=== PATIENT | female | born 1970 | race Caucasian/White ===

== ENCOUNTER 2022-05-08 18:14 | Emergency (ER) | payer OTHER ==
[~2022-05-08] VITALS: Ht 154.9 cm; Wt 82.1 kg
--- NOTE | 2022-05-08 18:23 | NUR ---
BIB [facility] FROM HOME, ASTHMA ATTACK STARTED THIS MORNING, ALBUTEROL HHN GIVEN SHIPPING LEAD PERSON,BLOOD [id number], TO ER BED 7, HOOKED TO MONITOR, CHANGED TO HOSP GOWN, WARM BLANKET PROVIDED, PATIENT AAO x 4. ON NASAL CANNULA AT 4LPM, O2 SAT AT 97%. AWAITING MD BLANCA
--- NOTE | 2022-05-08 18:31 | NUR ---
DR MARTINS AT BEDSIDE
[2022-05-08] MEDS ORDERED: predniSONE 20 MG TABLET ONE (18:42)
[2022-05-08] MEDS ORDERED: ALBUTEROL FS 2.5 MG/0.5 ML VIAL.NEB NEB ONE (19:00)
[2022-05-08] MEDS ORDERED: predniSONE 50 MG TABLET PO ONE (19:00)
--- NOTE | 2022-05-08 19:02 | NUR ---
COVID SWAB DONE AND SENT TO LAB
[2022-05-08] MEDS ORDERED: ALBUTEROL FS 2.5 MG/0.5 ML VIAL.NEB ONE (19:08)
--- NOTE | 2022-05-08 19:32 | NUR ---
RECEIVED REPORT FROM JANELL LOPES FOR [facility]IL
[2022-05-08] MEDS ORDERED: ALBU18HF2 INH (19:38)
[2022-05-08] MEDS ORDERED: PRED50TA PO (19:38)
--- NOTE | 2022-05-08 19:40 | NUR ---
PT IN RESTING COMFORTABLY IN BED, STATES SHE FEELS MUCH BETTER AFTER BREATHING TREATMENT.WILL CONTINUE TO MONITOR
--- NOTE | 2022-05-08 19:53 | NUR ---
Patient discharged to home in stable condition. Written and verbal after care instructions given. Patient verbalizes understanding of instruction.
[2022-05-08 19:54] VITALS: BP 112/60
--- NOTE | 2022-05-08 21:21 | NUR ---
PT ASSISTED TO HER CAR ON A WHEELCHAIR.
== END 2022-05-08 21:21 | disposition home or self-care (01) ==
LOC: ER 18:24
DX: J45.901 Unspecified asthma with (acute) exacerbation (principal); Z20.822 Contact with and (suspected) exposure to COVID-19; I69.351 Hemiplegia and hemiparesis following cerebral infarction affecting right dominant side; E78.00 Pure hypercholesterolemia, unspecified
CPT/HCPCS: 99284; 87426; 94640; J7512; C9803